=== PATIENT | male | born 1995 | race Asian ===

== ENCOUNTER 2021-07-30 13:23 | Emergency (ER) | payer OTHER, SELFPAY ==
[2021-07-30] VITALS (10 sets, daily range): BP systolic 118–148; BP diastolic 69–106; PULSE 76–112; RESP 16–18; TEMP 36.8; O2SAT 97–100
--- NOTE | ~2021-07-30 | XR_ITS ---
XR chest 1V DATE: 07/30/2021 15:20 INDICATION: Hyperglycemia. History of diabetes. Smoker. TB positive. TECHNIQUE: Portable upright AP chest COMPARISON: None FINDINGS: Normal heart size. No hilar or mediastinal enlargement. No pulmonary infiltrate or consolid ation, pleural effusion or pulmonary vascular congestion or pneumothorax. IMPRESSION: No active cardiopulmonary disease Reviewed, dictated and finalized at location A.
[2021-07-30 13:59] LABS: Glucose Point of Care 369 mg/dl (65-105)
--- NOTE | 2021-07-30 15:08 | ED.GENADULT ---
HPI - General Adult General Chief complaint: Recheck/Abnormal Lab/Rx Stated complaint: high blood sugar Time Seen by Provider: 07/30/21 14:21 Source: patient Mode of arrival: ambulatory Limitations: no limitations History of Present Illness HPI narrative: Patient is a college student recently arrived here from [place]. Since he arrived here he has been unable to get his diabetic medicines. He was sent here today by [facility] for elevated blood sugar. He says in the past he has been on Metformin but he does not know the dosing. He does have the ability to get his medications here if they are prescribed for him. He went to [facility] today for frequency urgency, and some pain with urination his UA there is concerning for UTI. He states that he has had a urinary tract infection in the past Related Data Allergies Allergy/AdvReac Type Severity Reaction Status Date / Time No Known Allergies Allergy Verified 07/30/21 13:39 Review of Systems Review of Systems: All systems reviewed & are unremarkable except as noted in HPI and below [facility] Social History Social History (Updated 07/30/21 @ 15:47 by Beth Umana PA-C) Smoking status: Current every day smoker Alcohol intake: current Substance use: never Occupation/Education: student Exam Const: General: no acute distress and alert Orientation/consciousness: patient oriented x3 Eyes: Conjunctivae: conjunctivae normal Pupils: Equal, round and reactive pupils present Resp: Effort & Inspection: normal respiratory effort Auscultation: clear to auscultation bilaterally Cardio: Rate: regular rate Rhythm: regular rhythm GI: GI Palp: Yes Soft to palpation : Penis: Yes normal penis and Yes uncircumcised Skin: General skin exam: normal color Neuro: General: patient oriented x3 Course Course Emergency Course: Patient would like referral for a primary care physician to help manage his diabetes. He is feeling much better after hydration. Most recent glucose is 210. Vital Signs Vital signs: Vital Signs Temperature 36.8 C 07/30/21 13:28 Pulse Rate 112 H 07/30/21 13:28 Respiratory Rate 18 07/30/21 13:28 Blood Pressure 148/94 H 07/30/21 13:28 Pulse Oximetry 100 07/30/21 13:28 Temperature 36.8 C 07/30/21 13:28 Pulse Rate 76 07/30/21 18:01 Respiratory Rate 16 07/30/21 18:01 Blood Pressure 118/78 07/30/21 18:01 Pulse Oximetry 98 07/30/21 18:01 Medical Decision Making Vital Signs Vital Signs: Vital Signs Temperature 36.8 C 07/30/21 13:28 Pulse Rate 112 H 07/30/21 13:28 Respiratory Rate 18 07/30/21 13:28 Blood Pressure 148/94 H 07/30/21 13:28 Pulse Oximetry 100 07/30/21 13:28 Temperature 36.8 C 07/30/21 13:28 Pulse Rate 76 07/30/21 18:01 Respiratory Rate 16 07/30/21 18:01 Blood Pressure 118/78 07/30/21 18:01 Pulse Oximetry 98 07/30/21 18:01 Lab Data Result diagrams: 07/30/21 16:03 07/30/21 16:03 Labs: Lab Results 07/30/21 07/30/21 07/30/21 Range/Units 13:54 15:53 16:03 WBC 9.3 (4.5-10.0) K/mm3 RBC 5.38 (4.6-6.20) M/mm3 Hgb 14.3 (14.0-18.0) g/dL Hct 42.7 (42.0-52.0) % MCV 79.4 L (80-100) fl MCH 26.6 (26-34) pg MCHC 33.5 (32-36) g/dl RDW 12.5 (11.5-14.5) % Plt Count 295 (150-375) k/mm3 MPV 9.7 (7.4-10.4) fl Immature Gran % (Auto) 0.3 (0-0.5) % Neut % (Auto) 50.2 (45.5-73.1) % Lymph % (Auto) 39.4 (18.3-44.2) % Ashley % (Auto) 5.6 (2.6-8.5) % Eos % (Auto) 3.7 (0-4.4) % Baso % (Auto) 0.8 (0.2-1.2) % Lymph # (Auto) 3.66 H (0.9-3.2) K/mm3 Ashley # (Auto) 0.5 (0.1-0.6) K/mm3 Eos # (Auto) 0.3 (0-0.3) K/mm3 Baso # (Auto) 0.1 (0.0-0.1) K/mm3 Abs Immat Gran (auto) 0.03 (0.00-0.031) K/mm3 Absolute Neuts (auto) 4.7 (1.3-6.7) K/mm3 Absolute Nucleated RBC 0.0 (0.0-0.012) K/mm3 Nucleated RBC % 0.0 (0.0-0.2) % Sodium (137-145) mm
[2021-07-30] MEDS: SODIUM CHLORIDE 0.9% IV 1,000 ML 999 ML IV CONT ×2 (15:23→17:15)
[2021-07-30 16:07] LABS: Add Urine Microscopic? YES; Appearance Urine Clear (Clear); Bilirubin Urine Negative (Negative); Blood Urine 1+ (Negative); Color Urine Straw (Yellow); Glucose Urine UA 3+ mg/dL (Negative); Ketones Urine 2+ mg/dL (Negative); Leukocyte Esterase Ur 2+ LEU/UL (Negative); Nitrate Urine Negative (Negative); Protein Urine 1+ mg/dL (Negative); RBC Urine 21-50 /hpf (0-2); Squamous Epithelial Cell Urine Rare /hpf (Few); Urobilinogen Urine Negative mg/dL (<2.0); WBC Urine 31-50 /hpf
[2021-07-30 16:17] LABS: Basophils Absolute Auto 0.1 K/mm3 (0.0-0.1); Basophils Percent Auto 0.8 % (0.2-1.2); Eosinophils Absolute Auto 0.3 K/mm3 (0-0.3); Eosinophils Percent Auto 3.7 % (0-4.4); Hematocrit 42.7 % (42.0-52.0); Hemoglobin 14.3 g/dL (14.0-18.0); Immature Granulocyte Absolute 0.03 K/mm3 (0.00-0.031); Immature Granulocyte Percent A 0.3 % (0-0.5); Lymphocytes Absolute Auto 3.66 K/mm3 (0.9-3.2); Lymphocytes Percent Auto 39.4 % (18.3-44.2); Mean Corpuscular HGB Conc 33.5 g/dl (32-36); Mean Corpuscular Hemoglobin 26.6 pg (26-34); Mean Corpuscular Volume 79.4 fl (80-100); Mean Platelet Volume 9.7 fl (7.4-10.4); Monocytes Absolute Auto 0.5 K/mm3 (0.1-0.6); Monocytes Percent Auto 5.6 % (2.6-8.5); Neutrophils Absolute Auto 4.7 K/mm3 (1.3-6.7); Neutrophils Percent Auto 50.2 % (45.5-73.1); Platelet Count Result 295 k/mm3 (150-375); Red Blood Count 5.38 M/mm3 (4.6-6.20); Red Cell Distribution Width 12.5 % (11.5-14.5); White Blood Count 9.3 K/mm3 (4.5-10.0)
[2021-07-30 16:27] LABS: Anion Gap 10 mmol/L (8-16); Blood Urea Nitrogen 8 mg/dL (9-20); Calcium 9.1 mg/dL (8.4-10.2); Carbon Dioxide 26 mmol/L (22-30); Chloride 99 mmol/L (98-107); Estimated CRCL calculation 176 ml/min; Estimated Glomerular Filt Rate > 60; Glucose 265 mg/dL (65-110); Potassium 3.7 mmol/L (3.4-5.0); Sodium 135 mmol/L (137-145)
[2021-07-30 17:12] LABS: Glucose Point of Care 243 mg/dl (65-105)
--- NOTE | 2021-07-30 19:30 | PC.NURSE ---
Assumed care of pt at this time. Pt alert and upright on stretcher, no complaints this time.
[2021-07-30] MEDS: NITROFURANTOIN MONOHYD MACROCR 100 MG CAP PO (19:45)
--- NOTE | 2021-07-30 20:29 | PC.NURSE ---
Glucose recheck for pt: 210 mg/dl. EDP notified. Result not crossing over into chart.
[2021-07-30 21:55] LABS: Glucose Point of Care 210 mg/dl (65-105)
[2021-07-30 21:55] LABS: Glucose Point of Care 224 mg/dl (65-105)
== END 2021-07-30 20:49 | disposition home or self-care (01) ==
PROVIDERS: Physician Assistant; Emergency Provider Emergency Medicine
DX: E11.65 Type 2 diabetes mellitus with hyperglycemia (principal); N39.0 Urinary tract infection, site not specified; F17.200 Nicotine dependence, unspecified, uncomplicated; Z91.14 Patient's other noncompliance with medication regimen
CPT/HCPCS: 36415; 71045; 80048; 81001; 82948; 85025; 87086; 87088; 96360; 96361; 99283; A9270; J7030

== ENCOUNTER 2021-11-05 12:18 | Emergency (ER) | payer OTHER, SELFPAY ==
[2021-11-05] VITALS (25 sets, daily range): BP systolic 110–144; BP diastolic 71–100; PULSE 69–110; RESP 12–25; TEMP 36.6; O2SAT 95–100
--- NOTE | ~2021-11-05 | CT_ITS ---
EXAMINATION: CTA chest PE protocol EXAM DATE: 11/05/2021 16:52 INDICATION: COVID and elevated d dimer. Shortness of breath and chest pains. TECHNIQUE: Spiral CTA of the chest (pulmonary arteries) was performed with 100 cc Omnipaque 350 intr avenous contrast injection. Images were acquired during the pulmonary arterial phase. Coronal maxi mum intensity projection 3D-reconstructions were created by the technologist on dedicated workstation . Axial, coronal and sagittal reformatted images were reviewed. The dose-length product (DLP) for t his examination was 320.24 mGy-cm. The exposure was tailored according to patient size (auto mA exp osure control), and iterative reconstruction (ASIR) was used as additional dose reduction technique. There is no prior study for comparison. FINDINGS: Pulmonary arteries are well opacified and without intraluminal filling defects. No thora cic aortic dissection. The lungs are clear. There are no pleural or pericardial effusions. Trach eobronchial tree is patent. There is no mediastinal, hilar or axillary lymphadenopathy. There is no pneumothorax. Heart normal in size. No evidence of coronary arterial calcification. There are two left renal arteries there is hepatomegaly There is thoracic spondylosis without osteoblastic or o steolytic lesions identified. IMPRESSION: 1. No pulmonary emboli or acute cardiopulmonary findings. 2. Hepatomegaly. Reviewed, dictated and finalized at location A. L OPERATOR
--- NOTE | ~2021-11-05 | XR_ITS ---
EXAMINATION: XR chest 1V portable DATE: 11/05/2021 12:48 INDICATION: Shortness of breath. Chest pain. TECHNIQUE: A single frontal view of the chest was obtained. COMPARISON: Chest single view 07/30/2021 FINDINGS: The chest demonstrates clear lungs without pneumonia, pleural effusion, or pneumothorax. Th e heart size is normal. IMPRESSION: 1. No acute cardiopulmonary disease. Reviewed, dictated and finalized at location B. L CLERK
--- NOTE | 2021-11-05 12:45 | ECG_ITS ---
Measurements Intervals [place] Rate: 88 P: 51 [place]: 163 QRS: 42 QRSD: 93 T: 28 QT: 337 QTc: 409 Interpretive Statements SINUS RHYTHM ST ELEVATION IN DIFFUSE LEADS, PROBABLY EARLY REPOLARIZATION ABNORMALITY MINIMAL Q WAVES- INFERIOR LEADS BASELINE ARTIFACT- V3 BORDERLINE ECG Electronically Signed On 11-05-2021 13:15:36 MANAGER MEETING by Kaushik Mckeon D.O.
--- NOTE | 2021-11-05 12:45 | ED.GENADULT ---
HPI - General Adult General Chief complaint: Shortness of Breath/Dyspnea Stated complaint: shortness of breath, nose bleed, cough Time Seen by Provider: 11/05/21 12:30 History of Present Illness HPI narrative: 26-year-old male presented to the emergency department for evaluation of COVID symptoms including epistaxis, chest pain, shortness of breath and fatigue. Patient states that he began having symptoms on the and was tested on the and results came back on the . Patient states yesterday he began having worsening symptoms including the chest pain. Patient states the chest pain is sharp and intermittent. Patient states the pain is intermittent and bilateral. Patient did get vaccinated. Patient did not yet get his booster-he was scheduled to get the booster on November 01 but was ill. Related Data Allergies Allergy/AdvReac Type Severity Reaction Status Date / Time No Known Allergies Allergy Verified 09/21/21 14:51 Review of Systems Review of Systems: CONSTITUTIONAL: Intermittent fever chills and fatigue. EYES: Denies visual changes, redness, or discharge. ENT: Denies rhinorrhea, congestion, sore throat, or otalgia. CARDIOVASCULAR: Brief intermittent sharp bilateral chest pain RESPIRATORY: Does have cough and shortness of breath GASTROINTESTINAL: Denies abdominal pain, nausea, vomiting, or diarrhea. GENITOURINARY: Denies dysuria or hematuria. SKIN: Denies rash or itching. MUSCULOSKELETAL: Denies back pain, joint pain, or myalgia. NEUROLOGIC: Denies headache, numbness, or weakness. PSYCHIATRIC: Denies anxiety or depression. PMFSH Past Medical History Medical History DM type 2 (diabetes mellitus, type 2) Dyslipidemia Social History Social History Smoking status: Current every day smoker Tobacco type: cigarettes Alcohol intake: current Substance use: never Additional occupation/education comments: [employer] Exam Narrative: APPEARANCE: Well appearing, no pain in distress, well-nourished. HEAD: normocephalic, atraumatic. EYES: PERRLA/EOMI, conjunctivae clear. THROAT: Pharynx clear, no exudate. NECK: Supple. No adenopathy, no masses. RESPIRATORY: Airway patent, respirations nonlabored. Clear to auscultation bilaterally, no rales, rhonchi, wheezing. CARDIOVASCULAR: Regular rate and rhythm without murmurs rubs or gallops. Reproducible chest wall tenderness to palpation ABDOMINAL: Soft, nontender, nondistended, normal bowel sounds MUSCULOSKELETAL: Moves all extremities. Strength/ROM intact, No edema, No calf tenderness. NEURO: Alert. Cranial nerves II through XII intact. SKIN: Warm, dry. Normal Color PSYCHIATRIC: Normal affect/mood. Course Course Emergency Course: D-dimer was ordered due to the pleuritic nature of the patient's pain. Patient's D-dimer was elevated. CTA PE study showed no evidence of pulmonary embolism. Patient was updated on the results of his labs and imaging. All questions or concerns were addressed. Patient was well-appearing and was clinically stable at time of discharge from the restaurant. Vital Signs Vital signs: Vital Signs Pulse Rate 103 H 11/05/21 12:26 Respiratory Rate 14 11/05/21 12:26 Blood Pressure 134/100 H 11/05/21 12:26 Pulse Oximetry 97 11/05/21 12:26 Temperature 98 F 11/05/21 12:27 Pulse Rate 89 11/05/21 17:18 Respiratory Rate 22 H 11/05/21 17:18 Blood Pressure 144/97 H 11/05/21 17:18 Pulse Oximetry 100 11/05/21 17:18 Medical Decision Making Vital Signs Vital Signs: Vital Signs Pulse Rate 103 H 11/05/21 12:26 Respiratory Rate 14 11/05/21 12:26 Blood Pressure 134/100 H 11/05/21 12:26 Pulse Oximetry 97 11/05/21 12:26 Temperature 98 F 11/05/21 12:27 Pulse Rate 89 11/05/21 17:18 Respiratory Rate 22 H 11/05/21 17:18 Blood Pressure 144/97 H 11/05/21 17:18 Pulse Oximetry 100 11/05/21 17:18
[2021-11-05 13:00] LABS: Basophils Absolute Auto 0.1 K/mm3 (0.0-0.1); Eosinophils Absolute Auto 0.4 K/mm3 (0-0.3); Eosinophils Percent Auto 4.4 % (0-4.4); Hematocrit 42.1 % (42.0-52.0); Hemoglobin 15.6 g/dL (14.0-18.0); Immature Granulocyte Absolute 0.12 K/mm3 (0.00-0.031); Immature Granulocyte Percent A 1.2 % (0-0.5); Lymphocytes Absolute Auto 3.79 K/mm3 (0.9-3.2); Lymphocytes Percent Auto 38.1 % (18.3-44.2); Mean Corpuscular HGB Conc 37.1 g/dl (32-36); Mean Corpuscular Hemoglobin 29.1 pg (26-34); Mean Corpuscular Volume 78.4 fl (80-100); Mean Platelet Volume 9.3 fl (7.4-10.4); Monocytes Absolute Auto 0.3 K/mm3 (0.1-0.6); Monocytes Percent Auto 3.2 % (2.6-8.5); Neutrophils Absolute Auto 5.2 K/mm3 (1.3-6.7); Neutrophils Percent Auto 52.1 % (45.5-73.1); Platelet Count Result 376 k/mm3 (150-375); Red Blood Count 5.37 M/mm3 (4.6-6.20)
[2021-11-05 13:14] LABS: Lactic Acid Reflex 1.5 mmol/L (0.7-2.1)
[2021-11-05] MEDS: SODIUM CHLORIDE 0.9% IV 1,000 ML 999 ML IV CONT (13:22)
--- NOTE | 2021-11-05 13:41 | PC.NURSE ---
Per Kristen in lab, please redraw cmp on red top tube, & blue top tubes blood is lipemic.
--- NOTE | 2021-11-05 15:13 | PC.NURSE ---
Prabhu Blum in the lab/ cmp hemolyzed. He will have the homemaking rehabilitation consultant come draw the patient. Dr. Garret leiva.
[2021-11-05 16:15] LABS: Alanine Aminotransferase 23 U/L (4-50); Albumin Level 3.8 g/dL (3.5-5.1); Alkaline Phosphatase 108 U/L (38-126); Anion Gap 12 mmol/L (8-16); Aspartate Amino Transferase 29 U/L (17-59); Bilirubin,Total 0.5 mg/dL (0.2-1.3); Blood Urea Nitrogen 15 mg/dL (9-20); Calcium 8.6 mg/dL (8.4-10.2); Carbon Dioxide 19 mmol/L (22-30); Chloride 101 mmol/L (98-107); Estimated CRCL calculation 214 ml/min; Estimated Glomerular Filt Rate > 60; Glucose 273 mg/dL (65-110); Potassium 4.5 mmol/L (3.4-5.0); Sodium 132 mmol/L (137-145)
== END 2021-11-05 17:41 | disposition home or self-care (01) ==
PROVIDERS: Emergency Provider Emergency Medicine; PCP Family Medicine
DX: U07.1 COVID-19 (principal); R07.89 Other chest pain; R09.1 Pleurisy; E11.9 Type 2 diabetes mellitus without complications; E78.5 Hyperlipidemia, unspecified; F17.210 Nicotine dependence, cigarettes, uncomplicated; R16.0 Hepatomegaly, not elsewhere classified; R94.31 Abnormal electrocardiogram [ECG] [EKG]; Z79.84 Long term (current) use of oral hypoglycemic drugs
CPT/HCPCS: 36415; 71045; 71275; 80053; 83605; 85025; 85380; 93005; 96360; 99284; J7030; Q9967